=== PATIENT | male | born 1965 | race Caucasian/White ===

== ENCOUNTER 2017-02-10 21:06 | Inpatient (IN) | payer BC ==
[~2017-02-10] VITALS: Ht 177.8 cm; Wt 82.3 kg
[2017-02-10] VITALS (7 sets, daily range): BP systolic 86–135; BP diastolic 53–91; PULSE 72–112; RESP 16; TEMP 98.4; O2SAT 93–98
[~2017-02-10 21:06] MED LIST: CLON.1T PO; OXYC20
--- NOTE | 2017-02-10 21:19 | PD ---
HPI Chief Complaint: Chest Pain Time Seen by Provider: 21:18 Travel History International Travel<30 days: No Contact w/Intl Traveler<30days: No Traveled to known affect area: No History of Present Illness HPI This 51-year-old male is complaining of some sharp chest pain. 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 He gets a pounding sensation and palpitations and then he gets a sharp precordial pain. He has no history of atrial fibrillation. He has no history of heart disease. He does smoke. he has no hypertension or diabetes. His father of heart disease at the age of 56. He does not see a medical doctor. He is on pain medication and mobile for arthritic pain PFSH Past Medical History Cancer: No Cardiovascular Problems: No Diabetes: No Diminished Hearing: No Endocrine: No Genitourinary: No Hepatitis: No Hiatal Hernia: No Immune Disorder: No Musculoskeletal: Yes (ARTHRITIES) Neurologic: Yes (EPILEPSY AGE 10) Respiratory: Yes (SLEEP APNEA) Thyroid Disease: No Past Surgical History Pacemaker: No Other Surgery: Yes Social History Alcohol Use: Yes (BEER 3 TIMES A WEEK) Tobacco Use: Yes (/2 ppd) Substance Use: No Allergies-Medications (Allergen,Severity, Reaction): Coded Allergies: No Known Allergies (Verified , 02/10/17) Reported Meds & Prescriptions Reported Meds & Active Scripts Active Reported Mobic (Meloxicam) 7.5 Mg Tab 7.5 Mg PO DAILY Oxycodone (Oxycodone HCl) 15 Mg Tab 15 Mg PO Q8HR Review of Systems General / Constitutional: No: Fever, Chills Eyes: No: Diploplia, Blurred Vision HENT: No: Headaches Cardiovascular: Positive: Chest Pain or Discomfort, Palpitations, No: Dyspnea on exertion Respiratory: No: Cough, Shortness of Breath Gastrointestinal: No: Vomiting, Diarrhea Genitourinary: No: Urgency, Frequency Musculoskeletal: No: Myalgias, Arthralgias Skin: No Itching, No Dryness Neurologic: No: Syncope, Focal Abnormalities Hematologic/Lymphatic: No: Easy Bruising Physical Exam Narrative GENERAL: Well-developed male SKIN: Focused skin assessment warm/dry. HEAD: Atraumatic. Normocephalic. EYES: Pupils equal and round. No scleral icterus. No injection or drainage. ENT: No nasal bleeding or discharge. Mucous membranes pink and moist. NECK: Trachea midline. No JVD. CARDIOVASCULAR: Rapid irregular rate and rhythm. No murmur appreciated. RESPIRATORY: No accessory muscle use. Clear to auscultation. Breath sounds equal bilaterally. GASTROINTESTINAL: Abdomen soft, non-tender, nondistended. Hepatic and splenic margins not palpable. MUSCULOSKELETAL: No obvious deformities. No clubbing. No cyanosis. No edema. NEUROLOGICAL: Awake and alert. No obvious cranial nerve deficits. Motor grossly within normal limits. Normal speech. PSYCHIATRIC: Appropriate mood and affect; insight and judgment normal. Data Data Last Documented VS Vital Signs Date Time Temp Pulse Resp B/P Pulse Ox O2 Delivery O2 Flow Rate FiO2 02/10/17 22:20 72 16 102/72 97 Room Air 02/10/17 21:10 98.4 Orders Ecg Monitoring (02/10/17 21:28) Blood Pressure (02/10/17 21:28) Iv Access Insert/Monitor (02/10/17 21:28) Oximetry (02/10/17 21:28) Vital Signs (02/10/17 21:28) Diltiazem Inj (Cardizem Inj) (02/10/17 21:30) Sodium Chloride 0.9% Flush (Ns Flush) (02/10/17 21:30) Electrocardiogram (02/10/17 21:28) Complete Blood Count With Diff (02/10/17 21:28) Basic Metabolic Panel (Bmp) (02/10/17 21:28) Troponin I (02/10/17 21:28) Prothrombin Time / Inr (Pt) (02/10/17 21:28) Act Partial Throm Time (Ptt) (02/10/17 21:28) Urinalysis - C+S If Indicated (02/10/17 21:28) Magnesium (Mg) (02/10/17 21:28) Thyroid Stimulating Hormone (02/10/17 21:28) Chest, Single Ap (02/10/17 21:28) Diltiazem Inj (Cardizem Inj) (02/10/17 21:30) Labs Laboratory Tests Test 02/10/17 21:15 White Blood Count 12.1 TH/MM3 Red Blood Count 5.17 MIL/MM3 Hemoglobin 15.7 GM/DL Hematocrit 46.8 % Mean Corpuscular Volume 90.5 FL Mean Corpuscular Hemoglobin 30.4 PG Mean Corpuscular Hemoglobin 33.6 % Concent Red Cell Distribution Width 12.4 % Platelet Count 249 TH/MM3 Mean Platelet Volume 8.4 FL Neutrophils (%) (Auto) 53.9 % Lymphocytes (%) (Auto) 33.5 % Monocytes (%) (Auto) 9.1 % Eosinophils (%) (Auto) 2.5 % Basophils (%) (Auto) 1.0 % Neutrophils # (Auto) 6.6 TH/MM3 Lymphocytes # (Auto) 4.0 TH/MM3 Monocytes # (Auto) 1.1 TH/MM3 Eosinophils # (Auto) 0.3 TH/MM3 Basophils # (Auto) 0.1 TH/MM3 CBC Comment DIFF FINAL Differential Comment Prothrombin Time 9.5 SEC Prothromb Time International 0.9 RATIO Ratio Activated Partial 31.3 SEC Thromboplast Time Sodium Level 142 MEQ/L Potassium Level 4.3 MEQ/L Chloride Level 105 MEQ/L Carbon Dioxide Level 28.4 MEQ/L Anion Gap 9 MEQ/L Blood Urea Nitrogen 17 MG/DL Creatinine 1.10 MG/DL Estimat Glomerular Filtration 70 ML/MIN Rate Random Glucose 123 MG/DL Calcium Level 8.5 MG/DL Magnesium Level 2.4 MG/DL Troponin I LESS THAN 0.02 NG/ML Thyroid Stimulating Hormone 5.010 uIU/ML [address] [place] [address] Medical Decision Making Medical Screen Exam Complete: Yes Emergency Medical Condition: Yes Medical Record Reviewed: Yes Differential Diagnosis Differential includes atrial fibrillation, coronary artery disease, atypical chest pain Narrative Course EKG shows atrial fibrillation at a rate of 120. There are no ST-T wave changes. Chest x-ray is negative. Patient has been started on Cardizem. His TSH is actually elevated at 5.01. His troponin is less than 0.2. Impression is new onset of atrial fibrillation with chest pain Diagnosis Primary Impression: Rapid atrial fibrillation Additional Impression: Chest pain Qualified Code: R07.9 - Chest pain, unspecified type Ortiz Hamilton MD February 10, 2017 21:19
[2017-02-10] MEDS ORDERED: OXYC15TA PO (21:20)
[2017-02-10] MEDS ORDERED: MOBI7.5T PO (21:20)
[2017-02-10] MEDS ORDERED: DILTIAZEM HCL 25 MG/5 ML VIAL IV ONE (21:30)
[2017-02-10] MEDS ORDERED: SODIUM CHLORIDE 0.9% FLUSH 10 ML FLUSH IVF PRN (21:30)
[2017-02-10] MEDS: DILTIAZEM INJ 125 MG in SODIUM CHLORIDE 0.9% INJ 100 ML IV SCH (21:44)
[2017-02-10 21:49] LABS: AUTOMATED NEUTROPHIL # 6.6 TH/MM3 (1.8-7.7); BASOPHIL # 0.1 TH/MM3 (0-0.2); EOSINOPHIL # 0.3 TH/MM3 (0-0.4); EOSINOPHIL % 2.5 % (0.0-4.0); HEMATOCRIT 46.8 % (39.0-51.0); HEMO FLAGS DIFF FINAL; LYMPH % 33.5 % (9.0-44.0); MEAN CELL VOLUME 90.5 FL (80.0-100.0); MEAN CORPUSCULAR HEMOGLOBIN 30.4 PG (27.0-34.0); MEAN CORPUSCULAR HGB CONC 33.6 % (32.0-36.0); MONO % 9.1 % (0.0-8.0); NEUT % 53.9 % (16.0-70.0); PLATELET COUNT 249 TH/MM3 (150-450); RED BLOOD COUNT 5.17 MIL/MM3 (4.50-5.90); RED CELL DISTRIBUTION WIDTH 12.4 % (11.6-17.2); WHITE BLOOD COUNT 12.1 TH/MM3 (4.0-11.0)
[2017-02-10 21:55] LABS: CHLORIDE 105 MEQ/L (98-107); POTASSIUM 4.3 MEQ/L (3.5-5.1); SODIUM (NA) 142 MEQ/L (136-145)
[2017-02-10 21:58] LABS: ANION GAP 9 MEQ/L (5-15); BICARBONATE 28.4 MEQ/L (21.0-32.0); BLOOD UREA NITROGEN 17 MG/DL (7-18); MAGNESIUM 2.4 MG/DL (1.5-2.5)
[2017-02-10 22:01] LABS: APTT (PATIENT) 31.3 SEC (24.3-30.1); GLOMERULAR FILTRATION RATE 70 ML/MIN (>89); INTERNATIONAL NORMALIZED RATIO 0.9 RATIO; PROTHROMBIN TIME - PATIENT 9.5 SEC (9.8-11.6)
--- NOTE | 2017-02-10 22:18 | RADHPO ---
EXAM DATE/TIME: 02/10/2017 21:51 [facility] COMPARISON: No previous studies available for comparison. INDICATIONS : Patient states chest pain that started this evening. MEDICAL HISTORY : None. SURGICAL HISTORY : None. ENCOUNTER: Initial ACUITY: 1 day PAIN SCORE: 2/10 LOCATION: Bilateral chest FINDINGS: A single view of the chest demonstrates the lungs to be symmetrically aerated without evidence of mas s, infiltrate or effusion. The cardiomediastinal contours are unremarkable. Osseous structures are intact. CONCLUSION: No acute disease. Srinath Dorman MD on February 10, 2017 at 22:16 Board Certified Radiologist. This report was verified electronically.
[2017-02-10] MEDS ORDERED: ACETAMINOPHEN 325 MG TAB PO PRN (22:45)
[2017-02-10] MEDS: SODIUM CHLOR 0.9% 1000 ML INJ 1,000 ML IV SCH (22:45)
[2017-02-10] MEDS ORDERED: ONDANSETRON HCL 4 MG/2 ML VIAL IVP PRN (22:45)
[2017-02-10] MEDS ORDERED: SODIUM CHLORIDE 0.9% FLUSH 10 ML FLUSH IV FLUSH PRN (22:45)
[2017-02-10] MEDS ORDERED: BISACODYL 10 MG SUPP RECTAL PRN (22:45)
[2017-02-10 23:00] LABS: BLOOD, URINE NEG (NEG); GLUCOSE,URINE NEG (NEG); KETONE, URINE NEG (NEG); NITRITE,URINE NEG (NEG); PH, URINE 5.5 (5.0-8.5)
[2017-02-10 23:05] LABS: COMMENT (UR) CULT NOT INDICATED; CULTURE IF INDICATED CULT NOT INDICATED; RBC, URINE 0-2 /hpf (0-3); SQUAMOUS EPITHELIAL CELL URINE 0-5 /hpf (0-5); URINE COLOR YELLOW (YELLW/STRAW); WBC, URINE 0-2 /hpf (0-5)
[2017-02-11] VITALS (19 sets, daily range): BP systolic 85–155; BP diastolic 52–70; PULSE 50–82; RESP 9–16; TEMP 98.1–98.5; O2SAT 90–98
[2017-02-11] MEDS: MORPHINE SULFATE 4 MG/ML INJ IV PRN ×2 (00:45→20:01)
[2017-02-11] MEDS: DILTIAZEM INJ 125 MG in SODIUM CHLORIDE 0.9% INJ 100 ML IV SCH (00:46)
[2017-02-11] MEDS: SODIUM CHLOR 0.9% 1000 ML INJ 1,000 ML IV SCH ×2 (00:47→18:45)
--- NOTE | 2017-02-11 07:32 | PD.CONS ---
HPI Service CV Consult Requested By Reason for Consult a-fib Primary Care Physician No Primary Care Physician History of Present Illness Here arthritis and GÉNESIS admitted for atrial fibrillation with RVR. 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 This started at 1420 yesterday and was waxing and waning even at 2000 when his , who is a nurse, came home. He denies any shortness of breath. He has since converted to SR . He father age 56 for heart disease (Armaan Boateng) Review of Systems Consitutional: DENIES: Fatigue, Fever, Chills, Weight gain, Weight loss Eyes: DENIES: Amaurosis Fugax, Change in vision HEENT: DENIES: Lightheadedness, Change in hearing Respiratory: DENIES: See HPI, Cough, Snoring, Shortness of breath, Wheezing, Sputum production Cardiovascular: COMPLAINS OF: See HPI Gastrointestinal: DENIES: Nausea, Vomiting, Change in bowel habits, Reflux, Bloody stools, Melena Genitourinary: DENIES: Urinary incontinence, Difficulty voiding Integumentary: DENIES: Rash Neurologic: DENIES: Tingling or numbness, Memory problems, Poor Balance, Stroke symptoms Musculoskeletal: DENIES: Joint pain, Muscle pain, Limited range of motion, Back pain Psychiatric: DENIES: Anxiety, Depression, Sleep disturbances Hematologic: DENIES: Bruising tendencies, Bleeding tendencies Endocrine: DENIES: Weight gain, Weight loss, Thyroid disease (Armaan Boateng ) Past Family Social History Allergies: Coded Allergies: No Known Allergies (Verified , 02/10/17) Past Medical History see HPI h/o seizures as a child Past Surgical History noncontributory Reported Medications Reported Meds & Active Scripts Active Reported Mobic (Meloxicam) 7.5 Mg Tab 7.5 Mg PO DAILY Oxycodone (Oxycodone HCl) 15 Mg Tab 15 Mg PO Q8HR Active Ordered Medications Current Medications Medications (Trade) Dose Ordered Sig/Veronika Route Start Time Stop Time Status Last Admin (Cardizem Inj/NS Inj) 125 ml @ 0 mls/hr TITRATE IV 02/10/17 21:30 02/11/17 00:46 Sodium Chloride 2 ml 2 ml UNSCH PRN IVF 02/10/17 21:30 02/10/17 21:35 (NS 1000 ml Inj) 1,000 ml @ 100 mls/hr Q10H IV 02/10/17 22:45 02/11/17 00:47 (NS Flush) 2 ml UNSCH PRN IV FLUSH 02/10/17 22:45 (NS Flush) 2 ml BID IV FLUSH 02/11/17 09:00 (Zofran Inj) 4 mg Q6H PRN IVP 02/10/17 22:45 (Dulcolax Supp) 10 mg DAILY PRN RECTAL 02/10/17 22:45 (Tylenol) 650 mg Q6H PRN PO 02/10/17 22:45 (Morphine Inj) 2 mg Q3H PRN IV 02/10/17 22:45 02/11/17 00:45 (Roxicodone) 15 mg Q8HR PO 02/11/17 06:00 Family History see HPI Social History beer 3 times per week, smokes 1/2 PPD, denies substance abuse (Armaan Boateng) Physical Exam Vital Signs Vital Signs Date Time Temp Pulse Resp B/P Pulse Ox O2 Delivery O2 Flow Rate FiO2 02/11/17 06:30 54 12 92/60 96 02/11/17 06:00 54 02/11/17 05:35 56 10 93/64 94 02/11/17 05:01 62 12 87/54 92 02/11/17 04:03 56 10 91/59 93 02/11/17 04:01 98.3 56 12 85/59 91 02/11/17 04:00 56 02/11/17 03:01 60 10 91/56 94 02/11/17 02:04 60 13 105/62 90 02/11/17 02:01 60 10 85/54 02/11/17 02:00 61 02/11/17 02:00 60 14 105/70 96 02/11/17 02:00 Nasal Cannula 2.00 02/11/17 01:19 16 02/11/17 01:00 72 02/11/17 00:45 98.5 82 16 98/52 96 02/10/17 23:20 88 118/71 98 Room Air 02/10/17 22:50 86 111/69 96 Room Air 02/10/17 22:35 81 114/73 02/10/17 22:20 72 16 102/72 97 Room Air 02/10/17 22:05 85 86/53 94 Room Air 02/10/17 21:48 82 103/68 93 Room Air 02/10/17 21:15 Room Air 02/10/17 21:10 98.4 112 16 122/85 96 135/91 Physical Exam GENERAL: Well-nourished, well-developed patient in no apparent distress. NECK: No JVD. No carotid bruit. CARDIOVASCULAR: Regular rate and rhythm. S1/S2 no murmur, rub, or gallop. RESPIRATORY: No accessory muscle use. Clear to auscultation. Breath sounds equal bilaterally. GASTROINTESTINAL: Abdomen soft, non-tender, nondistended. MUSCULOSKELETAL: Extremities without clubbing, cyanosis, or edema. Laboratory Laboratory Tests Test 02/10/17 02/10/17 02/11/17 21:15 22:50 02:40 White Blood Count 12.1 Red Blood Count 5.17 Hemoglobin 15.7 Hematocrit 46.8 Mean Corpuscular Volume 90.5 Mean Corpuscular Hemoglobin 30.4 Mean Corpuscular Hemoglobin 33.6 Concent Red Cell Distribution Width 12.4 Platelet Count 249 Mean Platelet Volume 8.4 Neutrophils (%) (Auto) 53.9 Lymphocytes (%) (Auto) 33.5 Monocytes (%) (Auto) 9.1 Eosinophils (%) (Auto) 2.5 Basophils (%) (Auto) 1.0 Neutrophils # (Auto) 6.6 Lymphocytes # (Auto) 4.0 Monocytes # (Auto) 1.1 Eosinophils # (Auto) 0.3 Basophils # (Auto) 0.1 CBC Comment DIFF FINAL Differential Comment Prothrombin Time 9.5 Prothromb Time International 0.9 Ratio Activated Partial 31.3 Thromboplast Time Sodium Level 142 Potassium Level 4.3 Chloride Level 105 Carbon Dioxide Level 28.4 Anion Gap 9 Blood Urea Nitrogen 17 Creatinine 1.10 Estimat Glomerular Filtration 70 Rate Random Glucose 123 Calcium Level 8.5 Magnesium Level 2.4 Troponin I LESS THAN 0.02 LESS THAN 0.02 Thyroid Stimulating Hormone 5.010 3rd Gen Urine Color YELLOW Urine Turbidity CLEAR Urine pH 5.5 Urine Specific [place] 1.015 Urine Protein NEG Urine Glucose (UA) NEG Urine Ketones NEG Urine Occult Blood NEG Urine Nitrite NEG Urine Bilirubin NEG Urine Leukocyte Esterase NEG Urine RBC 0-2 Urine WBC 0-2 Urine Squamous Epithelial 0-5 Cells Urine Bacteria NONE Microscopic Urinalysis Comment CULT NOT INDICATED (Armaan Boateng) Result Diagram: 02/10/17211402/10/172114 Assessment and Plan Problem List: (1) Rapid atrial fibrillation Assessment and Plan Now in SR, discontinue diltiazem and get 2D echo and Lexiscan stress test and go from there (Armaan Boateng) Assessment and Plan CHADSVASC 1. asa 325. unable to tolerate BB due to hypotension. avoid caffeine. encourage PO hydration. await SPECT and ECHO if negative, anticipate DC later today (Loi Butler MD) Armaan Boateng February 11, 2017 07:32 Loi Butler MD February 11, 2017 08:41
[2017-02-11 08:14] LABS: AUTOMATED NEUTROPHIL # 4.9 TH/MM3 (1.8-7.7); BASOPHIL # 0.1 TH/MM3 (0-0.2); EOSINOPHIL # 0.2 TH/MM3 (0-0.4); EOSINOPHIL % 2.6 % (0.0-4.0); HEMATOCRIT 45.8 % (39.0-51.0); HEMO FLAGS DIFF FINAL; LYMPH % 32.1 % (9.0-44.0); LYMPHOCYTE # 2.8 TH/MM3 (1.0-4.8); MEAN CELL VOLUME 91.1 FL (80.0-100.0); MEAN CORPUSCULAR HEMOGLOBIN 30.2 PG (27.0-34.0); MEAN CORPUSCULAR HGB CONC 33.2 % (32.0-36.0); MONO % 8.2 % (0.0-8.0); NEUT % 56.1 % (16.0-70.0); PLATELET COUNT 217 TH/MM3 (150-450); RED BLOOD COUNT 5.03 MIL/MM3 (4.50-5.90); RED CELL DISTRIBUTION WIDTH 12.8 % (11.6-17.2); WHITE BLOOD COUNT 8.8 TH/MM3 (4.0-11.0)
[2017-02-11 08:21] LABS: CHLORIDE 106 MEQ/L (98-107); POTASSIUM 4.2 MEQ/L (3.5-5.1); SODIUM (NA) 142 MEQ/L (136-145)
[2017-02-11 08:24] LABS: ANION GAP 7 MEQ/L (5-15); BICARBONATE 28.8 MEQ/L (21.0-32.0)
[2017-02-11 08:25] LABS: BLOOD UREA NITROGEN 16 MG/DL (7-18)
[2017-02-11 08:27] LABS: ALT (GPT) 24 U/L (12-78); AST (GOT) 16 U/L (15-37)
[2017-02-11 08:28] LABS: GLOMERULAR FILTRATION RATE 90 ML/MIN (>89)
[2017-02-11 08:29] LABS: TOTAL BILIRUBIN ADULT 0.4 MG/DL (0.2-1.0)
[2017-02-11 08:30] LABS: ALKALINE PHOSPHATASE 104 U/L (45-117)
[2017-02-11] MEDS: SODIUM CHLORIDE 0.9% FLUSH 10 ML FLUSH IV FLUSH SCH ×2 (09:00→20:01)
[2017-02-11 09:59] LABS: FREE T3 3.44 PG/ML (2.18-3.98); FREE T4 1.17 NG/DL (0.76-1.46)
--- NOTE | 2017-02-11 11:27 | HHI.HP ---
[facility] [place] No Primary Care Physician Admission Diagnosis RAPID ATRIAL FIBRILLATION, CHEST PAIN Diagnoses: Chief Complaint: Chest pain Travel History International Travel<30 Days: No Contact w/Intl Traveler <30 Da: No Traveled to Known Affected Are: No History of Present Illness This is a 51-year-old male with a history of tobacco abuse, arthritis, seizure and sleep apnea. 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 There was no radiation of pain. He also complained of shortness of breath. No dizziness , diaphoresis and nausea. In the emergency department he was found to be in A. fib RVR and was started on Cardizem drip which was later discontinued secondary to hypotension and bradycardia. He also converted to sinus rhythm. At this time, patient has no complaints. He has been out of bed ambulating in his room. He is awaiting echocardiogram and stress test. States he drinks coffee 1 -7 cups a day. Yesterday he only had one cup Review of Systems Constitutional: DENIES: Diaphoretic episodes, Fatigue, Fever, Weight gain, Weight loss, Chills, Dizziness, Change in appetite, Night Sweats Endocrine: DENIES: Heat/cold intolerance, Polydipsia, Polyuria, Polyphagia Eyes: DENIES: Blurred vision, Diplopia, Vision loss, Photosensitivity Ears, nose, mouth, throat: DENIES: Tinnitus, Vertigo, Throat pain, Hoarseness, Epistaxis, Odynophagia Respiratory: DENIES: Cough, Wheezing, Hemoptysis, Sputum production, Shortness of breath Cardiovascular: DENIES: Chest pain, Palpitations, Syncope, Dyspnea on Exertion , PND, Lower Extremity Edema, Orthopnea, Claudication Gastrointestinal: DENIES: Abdominal pain, Black stools, Bloody stools, Constipation, Diarrhea, Nausea, Vomiting, Difficulty Swallowing, Anorexia Genitourinary: DENIES: Urinary frequency, Urinary incontinence, Urgency, Hematuria, Dysuria, Nocturia, Penile Discharge Musculoskeletal: COMPLAINS OF: Joint pain Integumentary: DENIES: Rash Neurologic: DENIES: Headache, Localized weakness, Seizures, Tremor, Poor Balance Psychiatric: DENIES: Anxiety, Confusion, Depression, Hallucinations, Agitation , Suicidal Ideation, Homicidal Ideation, Delusions Except as stated in HPI: all other systems reviewed are Neg Past Family Social History Past Medical History Previously mentioned Past Surgical History Hernia repair and knee surgery Reported Medications Mobic and oxycodone Allergies: Coded Allergies: No Known Allergies (Verified , 02/10/17) Family History Heart disease Social History He quit drinking alcohol in 2007. Continues to smoke half a pack per day Physical Exam Vital Signs Vital Signs Date Time Temp Pulse Resp B/P Pulse Ox O2 Delivery O2 Flow Rate FiO2 02/11/17 08:48 21 02/11/17 07:00 Nasal Cannula 2.00 02/11/17 06:30 54 12 92/60 96 02/11/17 06:00 54 02/11/17 05:35 56 10 93/64 94 02/11/17 05:01 62 12 87/54 92 02/11/17 04:03 56 10 91/59 93 02/11/17 04:01 98.3 56 12 85/59 91 02/11/17 04:00 56 02/11/17 03:01 60 10 91/56 94 02/11/17 02:04 60 13 105/62 90 02/11/17 02:01 60 10 85/54 02/11/17 02:00 61 02/11/17 02:00 60 14 105/70 96 02/11/17 02:00 Nasal Cannula 2.00 02/11/17 01:19 16 02/11/17 01:00 72 02/11/17 00:45 98.5 82 16 98/52 96 02/10/17 23:20 88 118/71 98 Room Air 02/10/17 22:50 86 111/69 96 Room Air 02/10/17 22:35 81 114/73 02/10/17 22:20 72 16 102/72 97 Room Air 02/10/17 22:05 85 86/53 94 Room Air 02/10/17 21:48 82 103/68 93 Room Air 02/10/17 21:15 Room Air 02/10/17 21:10 98.4 112 16 122/85 96 135/91 Physical Exam GENERAL: This is a well-nourished, well-developed patient, in no apparent distress. SKIN: No rashes, ecchymoses or lesions. Cool and dry. HEAD: Atraumatic. Normocephalic. No temporal or scalp tenderness. EYES: Pupils equal round and reactive. Extraocular motions intact. No scleral icterus. No injection or drainage. ENT: Nose without bleeding, purulent drainage or septal hematoma. Throat without erythema, tonsillar hypertrophy or exudate. Uvula midline. Airway patent. NECK: Trachea midline. No JVD or lymphadenopathy. Supple, nontender, no meningeal signs. CARDIOVASCULAR: Regular rate and rhythm without murmurs, gallops, or rubs. RESPIRATORY: Clear to auscultation. Breath sounds equal bilaterally. No wheezes , rales, or rhonchi. GASTROINTESTINAL: Abdomen soft, non-tender, nondistended. No guarding. MUSCULOSKELETAL: Extremities without clubbing, cyanosis, or edema. No joint tenderness, effusion, or edema noted. No calf tenderness. Negative Homans sign bilaterally. NEUROLOGICAL: Awake and alert. Cranial nerves II through XII intact. Motor and sensory grossly within normal limits. Five out of 5 muscle strength in all muscle groups. Normal speech. Laboratory Laboratory Tests Test 02/10/17 02/10/17 02/11/17 02/11/17 21:15 22:50 02:40 08:00 White Blood Count 12.1 8.8 Red Blood Count 5.17 5.03 Hemoglobin 15.7 15.2 Hematocrit 46.8 45.8 Mean Corpuscular Volume 90.5 91.1 Mean Corpuscular Hemoglobin 30.4 30.2 Mean Corpuscular Hemoglobin 33.6 33.2 Concent Red Cell Distribution Width 12.4 12.8 Platelet Count 249 217 Mean Platelet Volume 8.4 7.9 Neutrophils (%) (Auto) 53.9 56.1 Lymphocytes (%) (Auto) 33.5 32.1 Monocytes (%) (Auto) 9.1 8.2 Eosinophils (%) (Auto) 2.5 2.6 Basophils (%) (Auto) 1.0 1.0 Neutrophils # (Auto) 6.6 4.9 Lymphocytes # (Auto) 4.0 2.8 Monocytes # (Auto) 1.1 0.7 Eosinophils # (Auto) 0.3 0.2 Basophils # (Auto) 0.1 0.1 CBC Comment DIFF FINAL DIFF FINAL Differential Comment Prothrombin Time 9.5 Prothromb Time International 0.9 Ratio Activated Partial 31.3 Thromboplast Time Sodium Level 142 142 Potassium Level 4.3 4.2 Chloride Level 105 106 Carbon Dioxide Level 28.4 28.8 Anion Gap 9 7 Blood Urea Nitrogen 17 16 Creatinine 1.10 0.89 Estimat Glomerular Filtration 70 90 Rate Random Glucose 123 97 Calcium Level 8.5 8.5 Magnesium Level 2.4 Troponin I LESS THAN 0.02 LESS THAN 0.02 LESS THAN 0.02 Thyroid Stimulating Hormone 5.010 3rd Gen Urine Color YELLOW Urine Turbidity CLEAR Urine pH 5.5 Urine Specific [place] 1.015 Urine Protein NEG Urine Glucose (UA) NEG Urine Ketones NEG Urine Occult Blood NEG Urine Nitrite NEG Urine Bilirubin NEG Urine Leukocyte Esterase NEG Urine RBC 0-2 Urine WBC 0-2 Urine Squamous Epithelial 0-5 Cells Urine Bacteria NONE Microscopic Urinalysis Comment CULT NOT INDICATED Total Bilirubin 0.4 Aspartate Amino Transf 16 (AST/SGOT) Alanine Aminotransferase 24 (ALT/SGPT) Alkaline Phosphatase 104 Total Protein 6.7 Albumin 3.4 Free Thyroxine 1.17 Free Triiodothyronine (T3) 3.44 pg/dL Result Diagram: 02/11/17 0800 02/11/17 0800 Imaging EKG tracing interpreted by me with rapid A. fib Chest x-ray image interpreted very with no acute cardiopulmonary disease Last Impressions Chest X-Ray 02/10/172127 Signed Impressions: Service Date/Time: February 21:51 - CONCLUSION: No acute disease. Srinath Dorman MD Assessment and Plan Problem List: (1) Rapid atrial fibrillation ICD Code: I48.91 Status: Acute (2) Chest pain ICD Code: R07.9 Status: Acute Assessment and Plan This is a 51-year-old male with a history of tobacco abuse, arthritis, seizure and sleep apnea. He presents to the emergency department with chest pain, palpitations and shortness of breath. EKG showed A. fib RVR. Started on Cardizem drip which was later discontinued secondary to hypotension and bradycardia. He also converted to sinus rhythm. At this time, patient has no complaints. He has been out of bed ambulating in his room. He is awaiting echocardiogram and stress test. Patient ruled out for IL. Continue aspirin [id number] score of 0. Unable to start beta zenon or calcium channel zenon secondary to bradycardia and hypotension. If echocardiogram and stress test unremarkable, he can be discharged home. Tobacco cessation. Limit or discontinue caffeine consumption Leukocytosis. Improved Hyperglycemia. Improved TSH of 5. Check free T3 and free T4. Outpatient follow-up Chronic medical conditions of arthritis, seizure and sleep apnea. Counseled regarding narcotic use. Seizure precautions. Advised follow-up for sleep study DVT prophylaxis with SCD and early ambulation Discussed Condition With Patient Discharge patient to home Condition on discharge: Improved Regular Diet as tolerated Ad Ofelia activity Rx written: Aspirin Follow-up with primary care physician in one week Problem Qualifiers (1) Chest pain: Qualified Code: R07.9 - Chest pain, unspecified type Chuy Ignacio MD February 11, 2017 11:27
[2017-02-11] MEDS ORDERED: ASPI325T33 PO (11:30)
--- NOTE | 2017-02-11 11:30 | HHI.DCPOC ---
Discharge Care Plan Diagnosis: (1) Rapid atrial fibrillation (2) Chest pain Your Health Problems Are: Difficulty with ADL Chest Pain Exercise Tolerance Goals to Promote Your Health * To prevent worsening of your condition and complications * To maintain your health at the optimal level Directions to Meet Your Goals Take your medications as prescribed Follow your dietary instruction Follow activity as directed Keep your appointments as scheduled Take your immunizations and boosters as scheduled If your symptoms worsen call your PCP, if no PCP go to Urgent Care Center or Emergency Room Smoking is Dangerous to Your Health. Avoid second hand smoke Call the 24-hour hour crisis hotline for domestic abuse at Chuy Ignacio MD February 11, 2017 11:30
[2017-02-11] MEDS ORDERED: REGADENOSON INJ 0.4 MG/5 ML SYR IV ONE (11:59)
--- NOTE | 2017-02-11 12:28 | RADHPO ---
EXAM DATE/TIME: 02/11/2017 10:53 [facility] COMPARISON: No previous studies available for comparison. INDICATIONS : Mid chest pain for one day. Atrial fibrillation. DOSE: 26.7 mCi Tc99m Myoview at stress. 8.7 mCi Tc99m Myoview at rest. 0.4 mg Lexiscan STRESS SYMPTOMS: Shortness of breath with neck pain. EJECTION FRACTION: 64% MEDICAL HISTORY : None SURGICAL HISTORY : None. ENCOUNTER: Initial ACUITY: 1 day PAIN SCALE: 8/10 LOCATION: Midsternal chest TECHNIQUE: The patient underwent pharmacologic stress with infusion of prescribed dose. Continuous ECG tracing was monitored during stress. Gated SPECT imaging was performed after stress and conventional SPECT i maging was performed at rest. The examination was performed on a SPECT/CT scanner, both attenuation and non-corrected datasets were reviewed. FINDINGS: DISTRIBUTION: The maximum perfused segment at stress is in the lateral wall. PERFUSION STUDY: The pattern of perfusion at stress is within normal limits. GATED STUDY: There is intact wall motion and thickening without hypokinetic or dyskinetic segments. CONCLUSION: 1. no reversible perfusion defect to suggest stress-induced myocardial ischemia. RISK CATEGORY: Low (<1% Annual Mortality Rate) Min Ramon MD on February 11, 2017 at 12:16 Board Certified Radiologist. This report was verified electronically.
[2017-02-11] MEDS: ASPIRIN EC 325 MG TABEC PO SCH (13:30)
--- NOTE | 2017-02-11 15:33 | EKG ---
Date Performed: 02/10/2017 Time Performed: 21:06:58 PTAGE: 51 years EKG: Atrial fibrillation with rapid ventricular response Inferior T wave changes are nonspecific Abnormal ECG PREVIOUS TRACING : 02/02/2013 07.08 DOCTOR: Ismael Vasquez Interpretating Date/Time 02/11/2017 15:29:09
[2017-02-12] VITALS: PULSE 60
[2017-02-12 02:00] VITALS: BP 93/63; PULSE 58; PULSE 61; RESP 14; TEMP 98.4; O2SAT 97
[2017-02-12 04:00] VITALS: PULSE 64
[2017-02-12] MEDS: SODIUM CHLOR 0.9% 1000 ML INJ 1,000 ML IV SCH (04:45)
[2017-02-12 06:00] VITALS: BP 103/62; PULSE 56; PULSE 63; RESP 13; TEMP 98.4; O2SAT 96
[2017-02-12 08:00] VITALS: PULSE 60
[2017-02-12] MEDS: SODIUM CHLORIDE 0.9% FLUSH 10 ML FLUSH IV FLUSH SCH (08:58)
[2017-02-12] MEDS: ASPIRIN EC 325 MG TABEC PO SCH (09:04)
--- NOTE | 2017-02-12 09:39 | HHI.PR ---
Subjective Remarks Follow-up paroxysmal A. fib. Doing ok remains in SR. Ambulating w/o CP and SOB. Awaiting ECHO. Dw RN Objective Vitals Vital Signs Date Time Temp Pulse Resp B/P Pulse Ox O2 Delivery O2 Flow Rate FiO2 02/12/17 06:00 98.4 56 13 103/62 96 02/12/17 06:00 63 02/12/17 04:00 64 02/12/17 02:00 98.4 61 14 93/63 97 02/12/17 02:00 58 02/12/17 00:00 60 02/11/17 22:00 72 02/11/17 22:00 98.1 62 14 105/59 98 02/11/17 20:00 75 02/11/17 19:00 96 Room Air 02/11/17 18:00 56 9 106/63 02/11/17 18:00 56 02/11/17 14:00 50 11 155/66 98 02/11/17 10:00 98.1 56 9 105/60 91 02/11/17 10:00 56 I/O 02/11/17 02/11/17 02/11/17 02/12/17 02/12/17 02/12/17 07:00 15:00 23:00 07:00 15:00 23:00 Intake Total 790 ml 1100 ml 350 ml 300 ml Output Total 300 ml 420 ml 500 ml 550 ml Balance 490 ml 680 ml -150 ml -250 ml Intake Oral 300 ml 500 ml 350 ml 300 ml IV Total 490 ml 600 ml 0 ml Output Urine Total 300 ml 420 ml 500 ml 550 ml # Voids 1 1 2 Result Diagram: 02/11/17 0800 02/11/17 0800 Imaging Last Impressions Myocardial Perfusion Scan Nuc Med 02/11/17 0000 Signed Impressions: Service Date/Time: Saturday, February 11, 2017 10:53 - CONCLUSION: 1. no reversible perfusion defect to suggest stress-induced myocardial ischemia. RISK CATEGORY : Low (<1%% Annual Mortality Rate) Min Ramon MD Chest X-Ray 02/10/172127 Signed Impressions: Service Date/Time: February 21:51 - CONCLUSION: No acute disease. Srinath Dorman MD Objective Remarks GENERAL: This is a well-nourished, well-developed patient, in no apparent distress. SKIN: No rashes, ecchymoses or lesions. Cool and dry. HEAD: Atraumatic. Normocephalic. No temporal or scalp tenderness. EYES: Pupils equal round and reactive. Extraocular motions intact. No scleral icterus. No injection or drainage. ENT: Nose without bleeding, purulent drainage or septal hematoma. Throat without erythema, tonsillar hypertrophy or exudate. Uvula midline. Airway patent. NECK: Trachea midline. No JVD or lymphadenopathy. Supple, nontender, no meningeal signs. CARDIOVASCULAR: Regular rate and rhythm without murmurs, gallops, or rubs. RESPIRATORY: Clear to auscultation. Breath sounds equal bilaterally. No wheezes , rales, or rhonchi. GASTROINTESTINAL: Abdomen soft, non-tender, nondistended. No guarding. MUSCULOSKELETAL: Extremities without clubbing, cyanosis, or edema. No joint tenderness, effusion, or edema noted. No calf tenderness. Negative Homans sign bilaterally. NEUROLOGICAL: Awake and alert. Cranial nerves II through XII intact. Motor and sensory grossly within normal limits. Five out of 5 muscle strength in all muscle groups. Normal speech. Nonfocal Procedures none A/P Problem List: (1) Rapid atrial fibrillation ICD Code: I48.91 Status: Acute (2) Chest pain ICD Code: R07.9 Status: Acute Assessment and Plan This is a 51-year-old male with a history of tobacco abuse, arthritis, seizure and sleep apnea. He presents to the emergency department with chest pain, palpitations and shortness of breath. EKG showed A. fib RVR. Started on Cardizem drip which was later discontinued secondary to hypotension and bradycardia. He also converted to sinus rhythm. At this time, patient has no complaints. He has been out of bed ambulating in his room. He is awaiting echocardiogram. Negative stress test. Patient ruled out for GA. Continue aspirin [id number] score of 0. Unable to start beta eznon or calcium channel zenon secondary to bradycardia and hypotension. If echocardiogram unremarkable, he can be discharged home. Albert RN to obtain ECHO results Tobacco cessation. Limit or discontinue caffeine consumption Leukocytosis. Improved Hyperglycemia. Improved TSH of 5. Normal free T3 and free T4. Outpatient follow-up Chronic medical conditions of arthritis, seizure and sleep apnea. Counseled regarding narcotic use. Seizure precautions. Advised follow-up for sleep study DVT prophylaxis with SCD and early ambulation Discharge Planning Discharge patient to home Condition on discharge: Improved Regular Diet as tolerated Ad Ofelia activity Rx written: Aspirin Follow-up with primary care physician in one week Problem Qualifiers (1) Chest pain: Qualified Code: R07.9 - Chest pain, unspecified type Chuy Ignacio MD February 12, 2017 09:38
[2017-02-12 10:00] VITALS: BP 101/75; PULSE 60; RESP 17; TEMP 98.1; O2SAT 99
--- NOTE | 2017-02-15 14:46 | EC ---
Study Study Date:02/11/2017 STUDY CONCLUSIONS SUMMARY - Left ventricle: The cavity size was normal. Wall thickness was normal. Systolic function was normal. The estimated ejection fraction was in the range of 55% to 60%. Wall motion was normal; there were no regional wall motion abnormalities. - Aortic valve: Valve area: 3.21cm^2 (Vmax). - Tricuspid valve: Mild regurgitation. If LV function is below 40, please consider prescribing an ACEI or ARB or document rationale for non-use. PROCEDURE DATA STUDY STATUS: Elective. Procedure: Transthoracic echocardiography. Image quality was suboptimal. The study was technically limited due to poor acoustic window availability. Scanning was performed from the parasternal, apical, and subcostal acoustic windows. Study completion: The patient tolerated the procedure well. Transthoracic echocardiography. M-mode, complete 2D, complete spectral Doppler, and color Doppler. Height: Height: 70in. Weight: Weight: 177.6lb. Body mass index: BMI: 25.5kg/m^2. Body surface area: BSA: 1.99m^2. Patient status: Inpatient. CARDIAC ANATOMY LEFT VENTRICLE: The cavity size was normal. Wall thickness was normal. Systolic function was normal. The estimated ejection fraction was in the range of 55% to 60%. Wall motion was normal; there were no regional wall motion abnormalities. AORTIC VALVE: Trileaflet; normal thickness leaflets. Doppler: Transvalvular velocity was within the normal range. There was no stenosis. No regurgitation. Valve area: 3.21cm^2 (Vmax). Indexed valve area: 1.61cm^2/m^2 (Vmax). AORTA: Aortic root: The aortic root was normal in size. MITRAL VALVE: Structurally normal valve. Doppler: Transvalvular velocity was within the normal range. There was no evidence for stenosis. No regurgitation. LEFT ATRIUM: The atrium was normal in size. RIGHT VENTRICLE: The cavity size was normal. Wall thickness was normal. PULMONIC VALVE: Doppler: Transvalvular velocity was within the normal range. There was no evidence for stenosis. No regurgitation. TRICUSPID VALVE: Structurally normal valve. Doppler: Transvalvular velocity was within the normal range. Mild regurgitation. PULMONARY ARTERY: The main pulmonary artery was normal-sized. Systolic pressure was within the normal range. RIGHT ATRIUM: The atrium was normal in size. PERICARDIUM: There was no pericardial effusion. SYSTEMIC VEINS: Inferior vena cava: The vessel was normal in size. Patient weight: 177.6lb _Ejection fraction:_ 65-75% _Fractional shortening:_ 32% up to 5Kg 5-11.5Kg 11.6-22.9Kg 23-45Kg 45-57Kg Aortic Root 7-13 <17 13-22 17-27 17-27 LA diam 6-13 <23 24-38 33-47 37-40 RVID 10-17 7-15 7-15 7-18 8-17 LVIDd 12-22 <32 24-38 33-47 37-40 LVPW 2-4 3-6 5-7 6-8 7-8 IVS 2-4 3-6 5-7 6-8 7-8 BASIC MEASUREMENTS ADULT NORMAL Left ventricle LV internal dimension, ED, chordal 44.2 mm 43-52 level, PLAX LV internal dimension, ES, chordal 30.8 mm 23-38 level, PLAX Fractional shortening, chordal level, 30 % >29 PLAX LV posterior wall thickness, ED 10.1 mm IVS/LVPW ratio, ED 1.02 <1.3 Ventricular septum Septal thickness, ED 10.3 mm Aortic valve Leaflet separation 19 mm 15-26 Right ventricle RV internal dimension, ED, PLAX 23.5 mm 19-38 BASIC MEASUREMENTS ADULT NORMAL Aortic valve Leaflet separation 19 mm 15-26 Aorta Root diameter, ED 27 mm 20-37 Left atrium Anterior-posterior dimension, ES 26 mm 19-40 Anterior-posterior dimension index, ES 1.31 cm/m^2 <2.2 LA/aortic root ratio 0.96 DOPPLER MEASUREMENTS ADULT NORMAL Aortic valve Peak velocity, S 107 cm/s Valve area, Vmax 3.21 cm^2 Valve area index, Vmax 1.61 cm^2/m^2 Mitral valve Peak E-wave velocity 64.2 cm/s Peak A-wave velocity 52.8 cm/s Deceleration time 162 ms 150-230 Peak E/A ratio 1.2 Pulmonic valve Peak velocity, S 73.3 cm/s LEGEND: Mean values are shown as u=mean value. Asterisk (*) zamora values outside specified normal range. Prepared and signed by Loi Butler [id number]
== END 2017-02-12 11:30 | disposition home or self-care (01) | DRG 310 ==
LOC: PHED 21:06 → PHEDA 22:38 → PHICU 02-11 00:30
PROVIDERS: ADMIT Internal Medicine; ATTEND Internal Medicine
DX: I48.91 Unspecified atrial fibrillation (principal); I95.2 Hypotension due to drugs; F17.210 Nicotine dependence, cigarettes, uncomplicated; R00.1 Bradycardia, unspecified; D72.829 Elevated white blood cell count, unspecified; G47.33 Obstructive sleep apnea (adult) (pediatric); G40.909 Epilepsy, unspecified, not intractable, without status epilepticus; M19.90 Unspecified osteoarthritis, unspecified site; R73.9 Hyperglycemia, unspecified; Z82.49 Family history of ischemic heart disease and other diseases of the circulatory system; T46.1X5A Adverse effect of calcium-channel blockers, initial encounter
CPT/HCPCS: 71010; 78452; 80048; 80053; 81001; 83735; 84439; 84443; 84481; 84484; 85025; 85610; 85730; 93005; 93017; 93306; 96365; 96376; A9502; J2270; J2785; J7030

== ENCOUNTER 2017-04-07 06:03 | Day surgery (SDC) | payer BC ==
[~2017-04-07] VITALS: Ht 177.8 cm; Wt 84.6 kg
[~2017-04-07 06:03] MED LIST changes: +ASPI325T33 PO; -CLON.1T PO; +MOBI7.5T PO; +OXYC15TA PO; -OXYC20
[2017-04-07 06:39] VITALS: BP 127/87; PULSE 71; RESP 18; TEMP 98.4; O2SAT 96
[2017-04-07 06:48] LABS: BASOPHIL # 0.1 TH/MM3 (0-0.2); BASOPHIL % 0.7 % (0.0-2.0); EOSINOPHIL # 0.2 TH/MM3 (0-0.4); EOSINOPHIL % 2.5 % (0.0-4.0); HEMATOCRIT 40.3 % (39.0-51.0); HEMO FLAGS DIFF FINAL; LYMPH % 35.3 % (9.0-44.0); LYMPHOCYTE # 3.4 TH/MM3 (1.0-4.8); MEAN CELL VOLUME 91.1 FL (80.0-100.0); MEAN CORPUSCULAR HEMOGLOBIN 30.5 PG (27.0-34.0); MEAN CORPUSCULAR HGB CONC 33.5 % (32.0-36.0); MONO % 8.4 % (0.0-8.0); NEUT % 53.1 % (16.0-70.0); PLATELET COUNT 224 TH/MM3 (150-450); RED BLOOD COUNT 4.42 MIL/MM3 (4.50-5.90); WHITE BLOOD COUNT 9.5 TH/MM3 (4.0-11.0)
[2017-04-07 06:52] LABS: APTT (PATIENT) 30.2 SEC (24.3-30.1); INTERNATIONAL NORMALIZED RATIO 0.9 RATIO; PROTHROMBIN TIME - PATIENT 9.8 SEC (9.8-11.6)
[2017-04-07] MEDS ORDERED: ASPIRIN 81 MG CHEW TAB PO SCH ×2 (07:00→09:00)
[2017-04-07 07:02] LABS: BICARBONATE 27.2 MEQ/L (21.0-32.0); POTASSIUM 4.1 MEQ/L (3.5-5.1)
[2017-04-07] MEDS ORDERED: HEPARIN-NS/PF INJ 500 ML ONE (07:28)
[2017-04-07] MEDS ORDERED: MIDAZOLAM HCL 2 MG/2 ML VIAL ONE (07:40)
[2017-04-07] MEDS ORDERED: ADENOSINE STRESS TEST INJ 90 MG/30 ML VIAL ONE (07:53)
[2017-04-07] MEDS ORDERED: HEPARIN SODIUM - IV 10,000 UNITS/10 ML VIAL ONE (07:55)
[2017-04-07] MEDS ORDERED: SODIUM NITROPRUSSIDE 50 MG/2 ML VIAL ONE (08:08)
--- NOTE | 2017-04-07 08:15 | EKG ---
Date Performed: 04/07/2017 Time Performed: 06:45:08 PTAGE: 51 years EKG: Sinus rhythm . Normal ECG PREVIOUS TRACING : 02/10/2017 21.06 DOCTOR: Ismael Vasquez Interpretating Date/Time 04/07/2017 08:11:54
[2017-04-07] MEDS ORDERED: MISC INFORMATION XX ONE (08:30)
[2017-04-07] MEDS ORDERED: SODIUM CHLORIDE 0.9% FLUSH 10 ML FLUSH PRN (08:30)
--- NOTE | 2017-04-07 08:30 | CATHPROC ---
[facility] HIS Report Study Information Study Number Admission Scheduled Start Study Start [id number] Apr 07 2017 6:03AM 04/07/2017 Apr 07 2017 7:14AM [place] [facility] Cardiac Catheterization Admit Source Facility Department Emergency department [facility] - Supervisor Furnace Room Physician and Clinical Staff Initial Javi Wallace Plaster Maker Connor Aquino,LAZARA Plaster Maker Harpreet Robison,LAZARA Recorder Jose Angel Bhardwaj,RT(R) Scrub Jennifer Lopez,RT(R) Procedures Performed Procedure Location (Site) Vessel Name Coronary Angiograms LCA Left Coronary Coronary Angiograms RCA Right Coronary LV Gram-hand inj. LV LV Ventricle Wire insertion Fem Art (right) Femoral Art Equipment Time Plant Production Worker Description Size Mfg Part Number Used/Scraped CATHETER, FR5 SWAN JUAN 07:43 Iceberg GONZALES FR 5 [id number] *[id number] Used MONITOR TRANSDUCER, TRUWAVE [id number] 07:43 MURRAY GONZALES * Used W/STOCKCOCK *[id number] *[id number] *[id number] *[id number] 07:43 [employer] PACK, CCL CUSTOM * Used *[id number] 07:43 [employer] PACER PEN, SKIN DUAL W/ RULER * Used *[id number] 07:43 MER[employer] SHEATH, FR5.5 PRELUDE 11CM FR 5.5 Used [id number]# [id number] 07:55 [employer] SHEATH, FR6.5 PRELUDE 11CM FR 6.5 038ACT Used *[id number] 07:43 [employer] MEDICAL WIRE, 3MMJ .035 180CM 180CM Used *[id number] 07:43 NAMIC MANIFOLD, 4 PORT * Used *[id number] 07:27 NYCOMED OMNIPAQUE, 350 MG, 150ML 150ML [id number] Used 07:43 NYCOMED OMNIPAQUE, 350 MG, 150ML 150ML [id number] Used [id number] 07:43 TOVAR MEDICAL BLANKET,WARM AIR CCL * Used *[id number] 07:43 TERUMO MEDICAL SHEATH, FR4 TERUMO (10CM) FR 4 [id number] Used 07:56 [employer] PRIME WIRE, VERRATA 185CM 185CM [id number] *[id number] Used Equipment Model, Serial, Lot Number and Expiration Data Description Model Number Serial Number Lot Number Expiration Date PRIME WIRE, GONZALEZ 185CM [id number] 02-07-2020 SHEATH, FR6.5 PRELUDE 11CM [id number] 11-09-2019 History: Risk Factors Family History of Hypertension Dyslipidemia Previous [place] Previous Heart Failure Premature CAD Yes No Yes No Yes Prior Valve Prior PCI Prior CABG Surgery No No No Cerebrovascular Peripheral Artery Chronic Lung On Dialysis Diabetes Disease Disease Disease No No No No No History: Stress Tests Stress or Imaging Studies Performed Yes Standard Exercise Stress Stress Test Result Stress Test Ischemia Risk/Extent Test Yes Positive High Stress Echo No Stress Test SPECT No Stress Test CMR No Cardiac CTA Coronary Calcium Score No No History: Other Current Smoker Method Packs a Day Years Used Pack Years Yes Cigarettes 1 20 20 Labs Hgb (g/dl) Hct (%) WBC (l/cumm) Platelets (thousands) 11.60-17.00 35.00-51.00 4.00-11.00 150.00-450.00 13.5 40.3 9.5 224 Glucose (mg/dl) BUN (mg/dl) Creatinine (mg/dl) BUN:Creatinine (1:x) 74.00-106.00 7.00-18.00 0.50-1.30 10.00-20.00 96 16 0.8 20 Na (meq/l) K (meq/l) 136.00-145.00 3.50-5.10 138 4.1 INR (PTT:PT) 0.90-1.10 0.9 CPK-MB (ng/ML) 0.50-3.60 Not Drawn Medication Medication Total Dose (Bolus/Oral) Medication Total Dosage/Unit 1% XYLOCAINE 20 mL HEPARIN 5900 units VERSED 2 mg Medications (Bolus/Oral) Medication Time Given Dosage/Unit Administered By Reason VERSED 04/07/2017 7:41:38 AM 1 mg Harpreet Robison Patient arrived on 1 mg VERSED given by Harpreet Robison RN via Peripheral IV. Ordered by Dwaine Steiner. 1% XYLOCAINE 04/07/2017 7:42:02 AM 20 mL Javi Steiner Patient arrived on 20 mL 1% XYLOCAINE given by Javi Steiner in Right Groin via Subcutaneous. Orde red by Javi Steiner. HEPARIN 04/07/2017 7:56:08 AM 5900 units Harpreet Robison Patient arrived on 5900 units HEPARIN given by Harpreet Robison, RN via Peripheral IV. Ordered by Javi Bojorquez. VERSED 04/07/2017 8:15:47 AM 1 mg Harpreet Robison 1 mg VERSED given in lab by Harpreet Robison, LAZARA via Peripheral IV. Ordered by Javi Steiner. Medication (Drip) Medication Time Given Dosage/Unit Concentration/Unit Diluent (ml) Solution ADENOSINE DRIP 04/07/2017 8:05:42 AM 140 mcg/kg/min 90 mg 90 NaCl .9 Patient arrived on 140 mcg/kg/min ADENOSINE DRIP given by Harpreet Robison, LAZARA via Peripheral IV. Pump/ Drip Flow = 705.6 ml/hr using NaCl .9 with a concentration of 90 mg in 90 ml. Ordered by Javi Steiner. ADENOSINE DRIP 04/07/2017 8:08:14 AM 0 mcg/kg/min 90 mg 90 NaCl .9 0 mcg/kg/min ADENOSINE DRIP given in lab by Harpreet Robison, LAZARA via Peripheral IV. Pump/Drip Flow = 0 ml/hr using NaCl .9 with a concentration of 90 mg in 90 ml. Ordered by Javi Steiner. stopped per Dr. Steiner IV Solutions 04/07/2017 7:18:34 AM 0 mL (IV) 500 NaCl .9 Patient arrived on IV Solutions given by Javi Steiner in Left Forearm via Peripheral IV. Pump/Dri p Flow = 20 ml/hr using NaCl .9. Ordered by Javi Steiner. NIPRIDE 04/07/2017 8:10:27 AM 200 mcg Patient arrived on 200 mcg NIPRIDE given by Javi Steiner via Intra-coronary. Ordered by Javi Steiner. Initial Case Assessment Cardiovascular HR Rhythm NIBP Chest Pain 55 sr 122/75 0 Edema Present Skin color Skin None Normal Warm Dry Circulatory - Right Pulses Dorsalis Pedis Femoral 1 3 Scale (0,1,2,3,4,d) Circulatory - Left Pulses Dorsalis Pedis Femoral 3 3 Scale (0,1,2,3,4,d) Neurological State Oriented to time-place- Alert Moves all extremities person Respiration - General Respiration Rate SpO2 (%) O2 (lpm) (B/min) 18 98 0 Final Case Assessment Cardiovascular HR Rhythm NIBP Chest Pain 56 sr 110/63 0 Edema Present Skin color Skin None Normal Warm Dry Circulatory - Right Pulses Dorsalis Pedis Femoral 1 3 Scale (0,1,2,3,4,d) Circulatory - Left Pulses Dorsalis Pedis Femoral 3 3 Scale (0,1,2,3,4,d) Neurological State Oriented to time-place- Alert Moves all extremities person Respiration - General Respiration Rate SpO2 (%) O2 (lpm) (B/min) 18 95 0 Chronological Log Time Study Chronological Log 7:14:04 Patient arrived via Bed. 7:14:06 Patient Name, D.O.B, / Armband Verified By R.N. 7:14:07 Consent signed by the physician and the patient and verified by the Supervisor Furnace Room staff. 7:14:08 Pre-op and post- op instructions given; patient acknowledges understanding of instructions. 7:16:33 Verbal Stimulation=2 Physical Stimulation=2 Airway=2 Respiration=2 TOTAL=8. (0=absent, 1=li mited, 2=present) 7:16:41 Presedation assessment performed by Supervisor Furnace Room RN. 7:16:43 Patient has been NPO for More than 6Hrs. Vitals capture started with the following parameters, Patient=Adult, Interval=5 min, Initial Pr dyerag=394 mmHg, 7:17:38 Deflation Rate=5 mmHg 7:17:54 Skin Breakdown-none present per patient. 7:18:08 Patient Warmer Placed on the Table. 7:18:14 A # 20 IV was noted in the Forearm (left). Grade = 0 Patient arrived on IV Solutions given by Javi Steiner in Left Forearm via Peripheral IV. Pu mp/Drip Flow = 20 ml/hr 7:18:34 using NaCl .9. Ordered by Javi Steiner. 7:18:54 BNZV=034/75 mmhg, SpO2=95.0 %, Lucero=2 7:19:17 History and physical on the chart or being dictated. Assessment: Initial Case, HR=55 BPM, Rhythm=sr, HHCG=691/75 mmhg, Chest Pain=0, Edema=None, [place] r=Normal, Skin = Warm, Dry Right Pulses: Carlos Ped=1, Femoral=3 7:19:24 Left Pulses: Carlos Ped=3, Femoral=3 Neurological: State=Alert, Ox3, REBOLLAR Respiration: Resp=18 B/min, SpO2=98 %, O2=0 lpm 7:20:13 HR=56 bpm, ZCFE=458/72 mmhg, SpO2=96.0 %, Resp=16 B/min, Lucero=2 7:22:10 HR=71 bpm, XWBM=814/81 mmhg, SpO2=96.0 %, Resp=18 B/min, Lucero=2 7:24:15 HR=64 bpm, MBLH=516/82 mmhg, SpO2=96.0 %, Resp=14 B/min, Lucero=2 7:25:32 Reference ECG taken 7:26:14 HR=59 bpm, OMFC=682/84 mmhg, SpO2=98.0 %, Resp=18 B/min, Lucero=2 7:28:19 HR=55 bpm, OMPS=085/65 mmhg, SpO2=94.0 %, Resp=15 B/min, Lucero=2 7:28:39 Bilateral groins prepped with 2% chlorhexidine, and with a 3 min. waiting time. 7:30:16 HR=57 bpm, YZEF=543/82 mmhg, SpO2=96.0 %, Resp=18 B/min, Lucero=2 7:32:49 HR=44 bpm, VHKM=994/79 mmhg, SpO2=97.0 %, Resp=18 B/min, Lucero=2 7:34:11 MD arrived. 7:34:13 HR=59 bpm, MMQV=771/86 mmhg, SpO2=97.0 %, Resp=15 B/min, Lucero=2 7:36:18 HR=59 bpm, CVQK=787/73 mmhg, SpO2=96.0 %, Resp=19 B/min, Lucero=2 7:37:11 Reference ECG taken 7:37:14 Pressure channel 1 zeroed. 7:38:19 HR=59 bpm, NBAB=998/69 mmhg, SpO2=96.0 %, Resp=11 B/min, Lucero=2 7:40:14 HR=60 bpm, MGAW=398/83 mmhg, SpO2=96.0 %, Resp=17 B/min, Lucero=2 Time Out. Correct patient, correct procedure,correct physician, ,power injector not loaded with contrast with surgical 7:40:51 team present. Time Out Concurred by MD, individual staff and SOLAR FABRICATION TECHNICIAN in procedure. Not loaded at th is time. Time Out #2 - Consents verified, patient in correct position, all results are labled and display ed, safety precautions 7:41:12 taken. Time Out concurred by MD, individual staff and SOLAR FABRICATION TECHNICIAN in procedure. 7:41:30 Presedation re-assessment performed by Supervisor Furnace Room RN. 7:41:32 Contrast Scanned 7:41:33 Case Start 7:41:38 Patient arrived on 1 mg VERSED given by Harpreet Robison RN via Peripheral IV. Ordered by Javi Plata. Patient arrived on 20 mL 1% XYLOCAINE given by Javi Steiner in Right Groin via Subcutaneous. Ordered by 7:42:02 Javi Steiner. 7:42:19 HR=55 bpm, BQKP=137/73 mmhg, SpO2=96.0 %, Resp=17 B/min, Lucero=2 7:42:24 Access site was Right Femoral Artery. 7:42:34 A SHEATH, FR4 TERUMO (10CM) FR 4 was advanced into the Fem Art (right) using the Percutaneou s technique. 7:43:50 Access site was Right Femoral Vein. 7:43:55 A SHEATH, FR5.5 PRELUDE 11CM FR 5.5 was advanced into the Fem Vein (right) using the Percuta neous technique. 7:44:12 A CATHETER, FR5 SWAN JUAN MONITOR FR 5 was inserted via Fem Vein (right) 7:44:17 HR=57 bpm, NFTY=334/72 mmhg, SpO2=95.0 %, Resp=13 B/min, Lucero=2 Recorded Pressure: PCW, HR=57, Condition=Condition 1 7:45:28 (Pulmonary Capillary Wedge) PCW Recorded Pressure: MPA, HR=56, Condition=Condition 1 7:45:58 (Main Pulmonary Artery) MPA 01/06/14 7:46:14 HR=57 bpm, AOGQ=301/70 mmhg, SpO2=93.0 %, Resp=12 B/min, Lucero=2 Recorded Pressure: RV, HR=58, Condition=Condition 1 7:46:57 (Right Ventricle) RV 21/0/5 Recorded Pressure: RA, HR=56, Condition=Condition 1 7:47:12 (Right Atrium) RA 6/5/3 7:48:17 HR=56 bpm, BWHP=099/71 mmhg, SpO2=93.0 %, Resp=13 B/min, Lucero=2 7:49:00 Saturation: Site=FA (Femoral Artery) , O2=95.3 %, Hgb=13.5 gm/dl, Condition=Condition 1. Use d in calculation. 7:49:16 Saturation: Site=PA (Pulmonary Artery) , O2=74.8 %, Hgb=13.5 gm/dl, Condition=Condition 1. U sed in calculation. 7:49:31 Saturation: Site=RA (Right Atrium) , O2=75.3 %, Hgb=13.5 gm/dl, Condition=Condition 1. Used in calculation. 7:50:01 Catheter was removed A JR 4.0 INFINITI CATHETER FR 4 was advanced over a wire. OMNIPAQUE, 350 MG, 150ML 150ML was use d for 7:50:04 injections. Recorded Pressure: LV, HR=57, Condition=Condition 1 7:50:05 (Left Ventricle) LV 111/2/10 7:50:15 The LV was manually injected with 8 cc's and visualized. OMNIPAQUE, 350 MG, 150ML 150ML used . 7:50:16 HR=56 bpm, KSDU=749/69 mmhg, SpO2=94.0 %, Resp=11 B/min, Luceor=2 Recorded Pressure: LV, Ao, HR=59, Condition=Condition 1 7:50:19 (Left Ventricle) LV 106/4/13, (Aorta) Ao 109/66/85 7:50:42 The RCA was injected and visualized at various angles. OMNIPAQUE, 350 MG, 150ML 150ML used. 7:52:17 HR=61 bpm, WCQA=933/71 mmhg, SpO2=94.0 %, Resp=10 B/min, Lucero=2 7:52:58 The LCA was injected and visualized at various angles. OMNIPAQUE, 350 MG, 150ML 150ML used. Recorded Pressure: Ao, HR=60, Condition=Condition 1 7:53:26 (Aorta) Ao 107/64/84 7:54:03 Catheter was removed 7:54:17 HR=57 bpm, EHWK=665/74 mmhg, SpO2=94.0 %, Resp=11 B/min, Lucero=2 A SHEATH, FR6.5 PRELUDE 11CM FR 6.5 was exchanged in the Fem Art (right). This was necessary in order to 7:55:24 accomodate a larger catheter. 7:56:08 Patient arrived on 5900 units HEPARIN given by Harpreet Robison, RN via Peripheral IV. Ordered by Javi Steiner. 7:56:18 HR=57 bpm, JJNS=755/74 mmhg, SpO2=95.0 %, Resp=12 B/min, Lucero=2 7:58:19 HR=57 bpm, BROE=733/69 mmhg, SpO2=94.0 %, Resp=11 B/min, Lucero=2 A JR 4.0 GUIDE CATHETER FR 6 was advanced over a wire. OMNIPAQUE, 350 MG, 150ML 150ML was used f or 7:58:43 injections. 8:00:18 HR=63 bpm, ZFIE=125/68 mmhg, SpO2=95.0 %, Resp=12 B/min, Lucero=2 8:00:43 Pressure channel 1 zeroed. 8:02:19 HR=58 bpm, TSQE=549/71 mmhg, SpO2=94.0 %, Resp=15 B/min, Lucero=2 A JR 4.0 GUIDE CATHETER FR 6 was advanced over a wire. OMNIPAQUE, 350 MG, 150ML 150ML was used f or 8:03:03 injections. 8:03:30 A PRIME WIRE, VERRATA 185CM 185CM was inserted via Fem Art (right). 8:04:18 HR=57 bpm, VAMO=263/69 mmhg, SpO2=94.0 %, Resp=15 B/min, Lucero=2 Patient arrived on 140 mcg/kg/min ADENOSINE DRIP given by Harpreet Robison, RN via Peripheral IV. Pump/Drip Flow = 8:05:42 705.6 ml/hr using NaCl .9 with a concentration of 90 mg in 90 ml. Ordered by Javi Steiner. 8:06:18 HR=59 bpm, EENM=309/66 mmhg, SpO2=96.0 %, Resp=20 B/min 8:07:21 Activated Clotting Time Drawn 0 mcg/kg/min ADENOSINE DRIP given in lab by Harpreet Robison, RN via Peripheral IV. Pump/Drip Flow = 0 ml/hr using 8:08:14 NaCl .9 with a concentration of 90 mg in 90 ml. Ordered by Javi Steiner. stopped per Dr. Kalin vann 8:08:21 HR=75 bpm, LEZQ=527/61 mmhg, SpO2=98.0 %, Resp=16 B/min, Lucero=2 8:09:23 Flow Wire was was placed in the RCA Prox. The FFR measures 0.84 percent. The IFR measures ~I FR~ Percent. 8:10:18 HR=69 bpm, AYKX=677/70 mmhg, SpO2=87.0 %, Resp=6 B/min, Lucero=2 8:10:27 Patient arrived on 200 mcg NIPRIDE given by Javi Steiner via Intra-coronary. Ordered by Javi Steiner. 8:12:12 FFR=0.88 with Nipride 8:12:23 HR=66 bpm, NVKQ=508/63 mmhg, SpO2=93.0 %, Resp=9 B/min, Lucero=2 8:14:22 HR=58 bpm, TCOK=526/64 mmhg, SpO2=93.0 %, Resp=14 B/min, Lucero=2 8:15:47 1 mg VERSED given in lab by Harpreet Robison, RN via Peripheral IV. Ordered by Michel Steiner 8:16:23 HR=56 bpm, WETB=463/70 mmhg, SpO2=95.0 %, Resp=22 B/min, Lucero=2 8:16:45 Wire removed 8:16:47 Catheter was removed 8:17:00 Case End Assessment: Final Case, HR=56 BPM, Rhythm=sr, UJIP=126/63 mmhg, Chest Pain=0, Edema=None, [place] r=Normal, Skin = Warm, Dry Right Pulses: Carlos Ped=1, Femoral=3 8:17:33 Left Pulses: Carlos Ped=3, Femoral=3 Neurological: State=Alert, Ox3, REBOLLAR Respiration: Resp=18 B/min, SpO2=95 %, O2=0 lpm 8:18:23 HR=56 bpm, XFJD=383/63 mmhg, SpO2=91.0 %, Resp=9 B/min, Lucero=2 8:19:18 Catheter(s) removed without difficulty 8:19:24 In the Fem Art (right) the SHEATH, FR6.5 PRELUDE 11CM FR 6.[address] by Javi Bojorquez. 8:20:24 HR=58 bpm, OFMC=182/67 mmhg, SpO2=93.0 %, Resp=17 B/min, Lucero=2 8:20:29 ACT (Normal Range 90-180) = 242 8:21:55 Vitals capture stopped. 8:23:36 Sterile dressing applied to site 8:23:37 No case complications noted. 8:23:39 Cine recording checked. 8:23:41 Bedside Report will be given. 8:23:46 Contrast Scanned 8:23:49 Patient moved to [facility] End Study - Contrast Media Used In Study Contrast Total Opened (mL) Total Used (mL) Total Wasted (mL) Omnipaque 75 75 0 End Study - Maximum Contrast Load Max Contrast Load (mL) 525.0 End Study - Radiation Exposure Fluoro Time (minutes) 5.0 End Study - Patient Disposition Complications Transferred To Telemetry Bed
[2017-04-07] MEDS ORDERED: SODIUM CHLORIDE 0.9% FLUSH 10 ML FLUSH SCH (09:00)
[2017-04-07 09:21] LABS: HDL CHOLESTEROL 44.2 MG/DL (40.0-60.0); INDIRECT BILIRUBIN 0.2 MG/DL (0.0-0.8); TOTAL BILIRUBIN ADULT 0.3 MG/DL (0.2-1.0)
[2017-04-07] MEDS ORDERED: IOHEXOL 350 MG/ML 100 ML BTL (for Cath Lab) OTHER ONE (10:43)
[2017-04-07] MEDS ORDERED: MELOXICAM 7.5 MG TAB PO SCH (14:55)
[2017-04-07] MEDS ORDERED: ASPIRIN EC 325 MG TABEC PO SCH (14:56)
[2017-04-07] MEDS ORDERED: OXYC60TA8 PO (15:04)
[2017-04-07] MEDS ORDERED: oxyCODONE HCL 20 MG CONTROLLED RELEASE TAB PO ONE (15:15)
--- NOTE | 2017-04-09 20:58 | MA ---
cc: ESTHER HOFFMAN M.D. DATE: 04/07/2017. PROCEDURES PERFORMED: 1. Right heart catheterization. 2. Left heart catheterization. 3. Left ventriculography. 4. Coronary arteriography. 5. FFR of the proximal to mid right coronary artery. INDICATIONS FOR THE PROCEDURE: Moderate to large sized defect in the posterior wall, small reversible defect in the posterior wall. Ejection fraction 50%. Unstable angina. Anginal equivalent. [place] [employer] class III Angina. Congestive heart failure. [place] [employer] Association class III congestive heart failure symptoms. Dyspnea. History of tobacco use. Coronary artery disease. DESCRIPTION OF THE PROCEDURE IN DETAIL: The patient was brought to the cardiac catheterization laboratory and prepped and draped in the usual sterile fashion. 10 cc of 1% lidocaine was used to locally anesthetize the right common femoral artery. A 4-Martiniquais sheath was placed in the right common femoral artery. A 5-Martiniquais sheath was placed in the right common femoral vein. Right heart catheterization was performed first with the following findings: The pulmonary capillary wedge pressure was 9/8/8. PA pressure was 23/8-14. RV pressure was 21/0-5. RA pressure was 6/5-3. The cardiac output by Mary was 6.7 liters per minute. Cardiac index was 3.3 liters per meter squared per minute. SVR 982. FA sat on room air was 95.3%. PA sat on room air was 74.8%. RA sat on room air was 75.3%. Left heart catheterization was then performed with the following findings with a 4-Martiniquais JR4 and JL4 catheter. LV pressure was 110/3-5. Ejection fraction 55%. The right coronary artery is dominant and has a superior takeoff. It has a long sequential 50% to 60% stenosis in the proximal to mid segment. The left main coronary artery has no significant disease angiographically. It is a large vessel and short as well and would estimate it is probably 6 mm in diameter. The left circumflex vessel has mild diffuse disease in the proximal segment up to 20% to 30% angiographically. The remainder of the AV groove of the left circumflex vessel has no significant disease angiographically. The first and second obtuse marginal vessels are small vessels, probably 1 mm in diameter with no obvious significant obstructive disease. The third obtuse marginal vessel is a large vessel approaching the apex with mild diffuse disease in the mid segment up to 10% to 20% angiographically. The left anterior descending is transapical and has mild diffuse disease in its proximal to mid segment up to 10% to 20% angiographically. The first diagonal artery is a small to medium-sized vessel, 2.0 to 2.25 mm in diameter. Otherwise no significant obstructive disease. As the patient has a large fixed defect in the posterior wall with a small reversal defect in the posterior wall, multiple cardiac risk factors and a 50% to 60% sequential stenosis in the proximal to mid right coronary artery, I did think FFR was medically necessary. The patient also had anginal equivalent dyspnea on exertion [place] [employer] class III angina. Therefore, a 4-Martiniquais sheath was exchanged for a 6-Martiniquais sheath. 7 liters/kilo of heparin was given for an ACT of 2.2. A 6-Martiniquais multipurpose guide was placed in the ostium of the right coronary artery. A 0.014 volcano pressure wire was placed in the proximal right coronary artery. The introducer was removed. The guide catheter was flushed with 20 cc of normal saline. Pressure waveforms were normalized. The wire was then used to cross the proximal to mid right coronary artery and placed into the distal right coronary artery. The patient was infused with 140 micrograms/kilogram/minute of adenosine for three minutes and maximal FFR was 0.84. Adenosine was discontinued. FFR then returned to 1.0. I then bolused the patient with 200 microgram of intracoronary Nipride. FFR after the Nipride bolus was 0.88. CONCLUSIONS: 1. Moderate to severe right coronary artery disease as detailed above with otherwise mild left anterior descending and left circumflex vessel disease as detailed above. 2. Normal left ventricular systolic function with ejection fraction of 55%. 3. Normal right heart catheterization pressures as detailed above. 4. FFR of the proximal to mid right coronary artery after adenosine was 0.84. 5. FFR of the proximal to mid right coronary artery after 200 micrograms of Nipride was 0.88. 6. Recommend medical management of coronary artery disease. 7. Start aspirin 81 milligrams daily. 8. Will check fasting lipids, 9. Treat per NCCN guidelines. 10. The patient was strongly advised by myself personally to discontinue smoking. MD DARVIN Reddy/RAJI /8:27 AM /8:42 PM
== END 2017-04-07 18:00 | disposition home or self-care (01) ==
LOC: HCAT 06:03 → HDIC 06:04 → HCAT 18:00
PROVIDERS: ATTEND Internal Medicine Interventional Cardiology
DX: I25.110 Atherosclerotic heart disease of native coronary artery with unstable angina pectoris (principal); I50.9 Heart failure, unspecified
CPT/HCPCS: 80048; 80061; 80076; 82550; 82810; 85025; 85347; 85610; 85730; 93005; 93460; 93571; C1769; C1893; J0153; J1644; J2250; Q9967